=== PATIENT | female | born 1995 | race Caucasian/White ===

== ENCOUNTER → 2020-02-25 | Outpatient (CLI) | payer BC ==
--- NOTE | 2020-02-26 00:52 | EKG REPORT ---
SEVERITY:- NORMAL ECG - SINUS RHYTHM : Confirmed by: Bg Pineda 26-Feb-2020 00:51:46
== END ==
LOC: OD 12:35
PROVIDERS: ATTEND Advanced Practice Midwife
DX: O26.893 Other specified pregnancy related conditions, third trimester (principal); R07.1 Chest pain on breathing; Z3A.32 32 weeks gestation of pregnancy
CPT/HCPCS: 93005; 93010

== ENCOUNTER 2020-04-26 10:42 | Inpatient (IN) | payer BC, OTHER ==
[2020-04-26] MEDS ORDERED: RINGERS SOLUTION,LACTATED 1,000 ML IV ONE (11:15)
[2020-04-26] MEDS ORDERED: RINGERS SOLUTION,LACTATED 1,000 ML IV PRN (11:15)
[2020-04-26 11:25] LABS: APPEARANCE,URINE CLEAR; BILIRUBIN,URINE NEGATIVE (NEGATIVE); COLOR,URINE YELLOW; GLUCOSE, URINE NEGATIVE (NEGATIVE); KETONES,URINE NEGATIVE (NEGATIVE); LEUKOCYTE ESTERASE,URINE NEGATIVE (NEGATIVE); NITRITE,URINE NEGATIVE (NEGATIVE); PROTEIN,URINE NEGATIVE (NEGATIVE); URINE SPECIFIC GRAVITY 1.011; UROBILINOGEN,URINE NEGATIVE mg/dL (<2.0)
[2020-04-26 11:43] LABS: URINE AMPHETAMINES SCREEN NEGATIVE; URINE BARBITURATES SCREEN NEGATIVE; URINE BENZODIAZEPINES SCREEN NEGATIVE; URINE COCAINE SCREEN NEGATIVE; URINE MARIJUANA (THC) SCREEN NEGATIVE; URINE METHADONE SCREEN NEGATIVE; URINE PHENCYCLIDINE SCREEN NEGATIVE
[2020-04-26 12:18] LABS: ABSOLUTE LYMPHOCYTES (AUTO) 1.2 10^3/uL (0.5-4.7); ABSOLUTE MONOCYTES (AUTO) 0.6 10^3/uL (0.1-1.4); ABSOLUTE NEUT (AUTO) 6.8 10^3/uL (1.7-8.2); BASOPHILS % (AUTO) 0.2 % (0-2); EOSINOPHILS % (AUTO) 0.1 % (0-6); HEMATOCRIT 30.5 % (36.0-47.0); HEMOGLOBIN 10.4 g/dL (12.0-15.5); LYMPHOCYTES % (AUTO) 14.1 % (13-45); MEAN CORPUSCULAR HEMOGLOBIN 31.5 pg (27.0-33.4); MEAN CORPUSCULAR VOLUME 93 fl (80-97); MONOCYTES % (AUTO) 6.4 % (3-13); PLATELET COUNT 198 10^3/uL (150-450); RED CELL DISTRIBUTION WIDTH 16.2 % (11.5-14.0); SEGMENTED NEUTROPHILS % (AUTO) 79.2 % (42-78); TOTAL CELLS COUNTED % (AUTO) 100 %; WHITE BLOOD COUNT 8.7 10^3/uL (4.0-10.5)
--- NOTE | 2020-04-26 12:50 | Admission Physical ---
Datetime Report Generated by CPN: 04/26/2020 12:49 CURRENT ADMISSION Chief Complaint: Uterine Contractions; Suspected Ruptured Membranes Chief Complaint Other: G1 at 40.5 weeks EGA with contractions and cervical change noted in triage: Active labor. Membranes intact Admit Impression : Term, Intrauterine ; Active Labor Admit Plan: Admit to Unit; Initiate Labor Protocol ALLERGIES Medication Allergies: No Medication Allergies: No Known Allergies (04/26/2020) Latex: No Latex Allergies Food Allergies: denies Environmental Allergies: denies OBSTETRICAL HISTORY EDC: 04/21/2020 00:00 : 1 Para: 0 Term: 0 : 0 SAB: 0 IAB: 0 Ectopic: 0 Livin Cesareans: 0 VBACs: 0 Multiple Births: 0 Gestational Diabetes: No Rh Sensitization: No Incompetent Cervix: No JOSI: No Infertility: No ART Treatment: No Uterine Anomaly: No IUGR: No Hx Previous C/S: No Macrosomia: No Hx Loss/Stillborn: No PIH: No Hx : No Placenta Previa/Abruption: No Depression/PP Depression: No PTL/PROM: No Post Hemorrhage: No Current Procedures: Ultrasound Obstetrical History Comments: G1- current SEE RECORDS Alcohol: No Marijuana : No Cocaine: No Other Illicit Drugs: No Cigarettes: Never Smoker. [id number] MEDICAL HISTORY Diabetes: No Blood Transfusion: No Pulmonary Disease (Asthma, TB): No Breast Disease: No Hypertension: No [employer]ician Surgery: No Heart Disease: No Hosp/Surgery: No Autoimmune Disorder: No Anesthetic Complications: No Kidney Disease: No Abnormal Pap Smear: No Neuro/Epilepsy: No Psychiatric Disorders: No Other Medical Diseases: No Hepatitis/Liver Disease: No Significant Family History: No Varicosities/Phlebitis: No Trauma/Violence : No Thyroid Dysfunction: No Medical History Comments: eye surgery x2, INFECTIOUS HISTORY Gonorrhea: No Genital Herpes: No Chlamydia: No Tuberculosis: No Syphilis: No Hepatitis: No HIV/AIDS Exposure: No Rash or Viral Illness: Yes HPV: No Infectious History Comments: Covid + march 2020 PHYSICAL EXAM General: Normal HEENT: Normal Neurologic: Normal Thyroid: Normal Heart: Normal Lungs: Normal Breast: Normal Back: Normal Abdomen: Normal Genitourinary Exam: Normal Extremities: Normal DTRs: Normal Pelvic Type: Adequate Vital Signs: Reviewed; Within Normal Limits VAGINAL EXAM Dilatation: 4 Effacement: 80 Station: -2 Contraction Comments: Contractions every 3-5 minutes MEMBRANES Pooling: Negative Membranes: Intact FETUS A EGA: 40.5 Monitoring: External US FHR- Baseline: 125 Variability: Moderate 6-25bpm Accelerations: Prolonged Decelerations: None FHR Category: Category I Presentation: Vertex Admit Comment: G1 at 40.5 weeks in Active labor -Admit to LDR -CEFM and toco -NPO and IVFs: LR at 125 cc/hr after 1 liter bolus -GBS negative - Positive covid test 03/30/2020 but retested on 04/08/20 and negative. NO symptoms today except no sense of smell. Afebrile . FOB with patient and he is asymptomatic and afebrile. -Desires epidural -Anticipate PLANS FOR LABOR AND DELIVERY Labor and Delivery: None Pain Management: Epidural Feeding Preference: Breast Benefit of Breast Feed Discussed: Yes Circumcision: N/A INFORMED CONSENT Informed Consent Obtained: Vaginal Delivery; Vacuum/Forceps Assist; Risks, Benefits and Alternatives Discussed Signature: with User ID: [email or web address] : with User ID: [email or web address]
[2020-04-26] MEDS ORDERED: MISOPROSTOL 0.2 MG TABLET ONE (13:58)
[2020-04-26] MEDS ORDERED: EPHEDRINE SULFATE INJ 50 MG/1 ML AMPULE ONE (13:58)
[2020-04-26] MEDS ORDERED: OXYTOCIN 10 UNIT/ML VIAL ONE (13:58)
[2020-04-26] MEDS ORDERED: OXYTOCIN/0.9 % SODIUM CHLORIDE 30 UNIT/500 ML RTUINJ ONE (13:59)
[2020-04-26] MEDS ORDERED: LIDOCAINE 1% INJ-PF (10 MG/ML) 30 ML SDV ONE (13:59)
[2020-04-26] MEDS ORDERED: ROPIVACAINE HCL 0.2% INJ/PF (2 MG/ML) 20 ML SDV ONE (13:59)
[2020-04-26] MEDS ORDERED: FENTANYL/BUPIVACAINE/NS/PF 300 MCG/150 ML RTUINJ EPI ONE (13:59)
[2020-04-26] MEDS ORDERED: OXYTOCIN/0.9 % SODIUM CHLORIDE 30 UNIT/500 ML RTUINJ IV PRN (15:03)
[2020-04-26] MEDS ORDERED: ROPIVACAINE HCL 0.5% INJ/PF (5 MG/1 ML) 30 ML SDV ONE (18:00)
[2020-04-26] MEDS ORDERED: MAG HYDROX/AL HYDROX/SIMETH SUSP 30 ML UDCUP ONE (18:50)
[2020-04-27] MEDS ORDERED: ACETAMINOPHEN 325 MG TABLET PO PRN (01:12)
[2020-04-27] MEDS ORDERED: MEASLES,MUMPS&RUBELLA VACC/PF 0.5 ML VIAL SUBCUT PRN (01:12)
[2020-04-27] MEDS ORDERED: DIBUCAINE 1% OINTMENT 28 GM TP PRN (01:12)
[2020-04-27] MEDS ORDERED: OXYTOCIN/0.9 % SODIUM CHLORIDE 30 UNIT/500 ML RTUINJ IV PRN (01:12)
[2020-04-27] MEDS ORDERED: NA PHOS,M-B/NA PHOS,DI-BA (ADULT) 133 ML ENEMA PR PRN (01:12)
[2020-04-27] MEDS ORDERED: PROMETHAZINE HCL 25 MG TABLET PO PRN (01:12)
[2020-04-27] MEDS ORDERED: ACETAMINOPHEN 650 MG SUPP.RECT PR PRN (01:12)
[2020-04-27] MEDS ORDERED: GLYCERIN/WITCH HAZEL LEAF 1 EACH MED..WIPE TP PRN (01:12)
[2020-04-27] MEDS ORDERED: ZOLPIDEM TARTRATE 5 MG TABLET PO PRN (01:12)
[2020-04-27] MEDS ORDERED: DIPHENHYDRAMINE HCL 25 MG CAPSULE PO PRN (01:12)
[2020-04-27] MEDS ORDERED: BENZOCAINE/MENTHOL AEROSOL SPRAY 56 ML TOP PRN (01:12)
[2020-04-27] MEDS ORDERED: PSEUDOEPHEDRINE HCL 30 MG TABLET PO PRN (01:12)
[2020-04-27] MEDS ORDERED: PROMETHAZINE HCL INJ 25 MG/1 ML VIAL IV PRN (01:12)
[2020-04-27] MEDS ORDERED: PROMETHAZINE HCL 25 MG SUPP.RECT PR PRN (01:12)
[2020-04-27] MEDS ORDERED: ACETAMINOPHEN WITH CODEINE #3 TABLET PO PRN ×2 (01:12)
[2020-04-27] MEDS ORDERED: MAGNESIUM HYDROXIDE SUSP 30 ML UDCUP PO PRN (01:12)
[2020-04-27] MEDS ORDERED: DIPH/PERTUSS(ACELL)/TETANUS VAC/PF 0.5 ML SYR (>=10YO) IM PRN (01:12)
[2020-04-27] MEDS ORDERED: IBUPROFEN 800 MG TABLET ONE ×2 (01:18→06:23)
--- NOTE | 2020-04-27 02:09 | Birth Certificate Data ---
Cert Data Datetime Report Generated by CPN: 04/27/2020 02:09 CERTIFICATE DATA Delivery Provider: Denisha Arrieta MD (04/26/2020 10:44:KAYLEEN Zepeda) 47a. Care: Yes (04/26/2020 10:44:Tonia Banegas RN) 47b. Date of First Visit: 09/18/2019 00:00 (04/26/2020 10:44:Tonia Banegas RN) 47c. Date of Last Visit: 04/24/2020 00:00 (04/26/2020 10:44:Tonia Banegas RN) 47d. Number of Visits: 10 (04/26/2020 10:44:Tonia Banegas RN) 48a. Number of Prev Live Births: 0 (04/26/2020 10:44:Tonia Banegas RN) 48b. Now Livin (04/26/2020 10:44:Tonia Banegas RN) 48c. Live Births Now : 0 (04/26/2020 10:44:QS system process) 48e. Losses: 0 (04/26/2020 10:44:Tonia Banegas RN) RISK FACTORS IN THIS 49a. Diabetes: No (04/26/2020 10:44:Malia Lance RN) 49b. Hypertension: No (04/26/2020 10:44:Malia Lance RN) 49c. Previous Births: 0 (04/26/2020 10:44:Tonia Banegas RN) 49d. Stillborns: No (04/26/2020 10:44:Malia Lance RN) 49d. IUGR: No (04/26/2020 10:44:Malia Lance RN) 49e. Infertility Treatment: No (04/26/2020 10:44:Malia Lance RN) 49f. Previous Cesareans: 0 (04/26/2020 10:44:Tonia Banegas RN) Mother's Height 50b. Height Inches: 68 (04/27/2020 00:32:QS system process) Mother's Weight 51a. Pre- Weight (lbs): 177 (04/26/2020 10:44:Tonia Banegas RN) 51b. Weight at Delivery (lbs): 202 (04/27/2020 00:32:QS system process) 52. Dt Last Normal Menses Began: 07/16/2019 00:00 (04/26/2020 10:44:Tonia Banegas RN) Infections Present/Treated 53a. Gonorrhea: No (04/26/2020 10:44:Malia Lance RN) Results this Hospital Visit : Negative (04/26/2020 10:44:Tonia Banegas RN) 53b. Syphilis: No (04/26/2020 10:44:Malia Lance RN) 53c. Chlamydia: No (04/26/2020 10:44:Malia Lance RN) Results this Hospital Visit: Negative (04/26/2020 10:44:Tonia Banegas RN) 53d. Hepatitis B: No (04/26/2020 10:44:Malia Lance RN) Results this Hospital Visit: Negative (04/26/2020 10:44:Tonia Banegas RN) 53e. Hepatitis C: Negative (04/26/2020 10:44:Tonia Banegas RN) 53h. Mother Tested for HBsAG: Yes (04/26/2020 10:44:Tonia Banegas RN) 53i. Date Tested: 09/18/2019 00:00 (04/26/2020 10:44:Tonia Banegas RN) 53j. Test Result: Negative (04/26/2020 10:44:Tonia Banegas RN) Obstetric Procedures 54a, b, c. Obstetric Procedures: Ultrasound (04/26/2020 10:44:Malia Lance RN) Cigarette Smoking Cigarette Smoking: Never Smoker. [id number] (04/26/2020 10:44:Malia Lance RN) Onset of Labor 56a. PROM >12 Hrs: 6.95 (04/26/2020 10:44:QS system process) 56b. Precipitous Labor <3 Hrs: 15 (04/26/2020 10:44:QS system process) 56c. Prolonged Labor > 20 Hrs: 15 (04/26/2020 10:44:QS system process) 57a. Induction of Labor: Induction (04/26/2020 10:44:KAYLEEN Zepeda) 57c. Non-Vertex Presentation A: Vertex (04/26/2020 10:44:KAYLEEN Zepeda) 57d. Steroids - Lung Mat: None (04/26/2020 10:44:Malia Lance RN) 57d. Steroids - Lung Mat: Not Applicable (04/26/2020 10:44:Malia Lance RN) 57f. Mat [place] or Temp >100.4: 99.2 (04/26/2020 10:44:KAYLEEN Zepeda) 57g. Moderate/Heavy Meconium: Clear (04/26/2020 17:30:Malia Lance RN) 57h. Intolerance of Labor: N/A (04/26/2020 10:44:Mica Nunonatalie, RNC) 57i. Epidural/Spinal Anesthesia: Epidural (04/26/2020 10:44:Stephanie Galan RN) Method of Delivery 58a. Forceps - Unsuccessful A: N/A (04/26/2020 10:44:Mica Nunonce, RNC) 58b. Vacuum - Unsuccessful A: N/A (04/26/2020 10:44:Mica Ellashreyance, RNC) 58c. Presentation at 58c. Presentation at - A : Vertex (04/26/2020 10:44:Mica Yaakovnce, RNC) 58c. Presentation at - A : N/A (04/26/2020 10:44:Mica Bellavance, RNC) 58c. Presentation at - A : Cephalic (04/26/2020 10:44:Mica Ellaavance, RNC) Final Route and Method of Del 58d. Baby A Route/Delivery: Vaginal (04/27/2020 00:27:Mica Nunonce, RN) 58e. Trial of Labor Attempted: No (04/26/2020 10:44:Malia Lance RN) 58e. Trial of Labor Attempted A: N/A (04/26/2020 10:44:Malia Lance RN) 58e. Trial of Labor Attempted B: N/A (04/26/2020 10:44:Malia Lance RN) Maternal Morbidity 59b. 3rd or 4th Degree Lacs: Sulcus (04/26/2020 10:44:Mica Bellavance, [facility]) Birthweight Baby A: 3568 (04/26/2020 10:44:Stephanie Galan RN) 60a. Pounds : 7 (04/26/2020 10:44:QS system process) 60b. Ounces: 14 (04/26/2020 10:44:QS system process) 61. GA at Delivery Baby A: 40.6 (04/26/2020 10:44:KAYELEN Zepeda) : Full Term- 39- 40.6 Weeks (04/26/2020 10:44:QS system process) 62a. 5 Minute Baby A: 8 (04/26/2020 10:44:QS system process)
--- NOTE | 2020-04-27 02:09 | Delivery Summary ---
Del Sum A-C Datetime Report Generated by CPN: 04/27/2020 02:09 DELIVERY PERSONNEL DELIVERY PERSONNEL: [id number] Delivery Doctor:: Denisha Arrieta MD Labor and Delivery Nurse:: Stephanie Galan RNprosecuting attorney Nurse:: Mica Bergman RNC Nursery Nurse:: Holli Bhatti RN Nursery Nurse:: Danya Carrasco RN [employer]/[facility] ADMINISTRATOR: Anusha Ross, ST MATERNAL INFORMATION Delivery Anesthesia: Epidural Medications After Delivery: Pitocin 30 Units in 500ml NS/D5W Maternal Complications: None Provider Comments: Called to patients room as she was complete and +3. Pushed through a few contractions and delivered a viable female infant. As the head delivered, a dark large clot delivered: possible partial abruption. After delivery of the head, the shoulders and rest of the body delivered easily. FUndus firm and 1 below the umbilicus. Repair as above. Placenta spontaeously delivered intact. WIll send to pathology. INfant nasal and oral suctioned iwth assistance of nursery staff. Infant and Mother both stable. LABOR SUMMARY EDC: 04/21/2020 00:00 No. Babies in Womb: 1 Attempted: No Labor Anesthesia: Epidural LABOR INFORMATION Reason for Induction: Not Applicable Onset of Labor: 04/26/2020 09:00 Complete Dilatation: 04/26/2020 18:43 Oxytocin: Induction Group B Beta Strep: negative Steroids Given: None Reason Steroids Not Administered: Not Applicable MEMBRANES Membranes Rupture Method: Artificial Rupture of Membranes: 04/26/2020 17:30 Length of Rupture (hr): 6.95 Amniotic Fluid Color: Clear Amniotic Fluid Amount: Small Amniotic Fluid Odor: None STAGES OF LABOR Stage 1 hr: 9 Stage 1 min: 43 Stage 2 hr: 5 Stage 2 min: 44 Stage 3 hr: 0 Stage 3 min: 3 Total Time in Labor hr: 15 Total Time in Labor min: 30 VAGINAL DELIVERY Episiotomy: None Laceration #1: Sulcus Laceration Extension #1: Second Degree Laceration Repair: Yes Laceration Repair Note: Bilteral sulcus lacerations second degree and a second degree perineum that did not extend externally past the introitus. THese were repaired in a layered fashion with two 2-0 chormic in a layered fashion. Hemostasis obtained and good reapproximation of the perineum. Sponge Count Correct: Yes Sharps Count Correct: Yes CSECTION DELIVERY Primary Indication: N/A BABY A INFORMATION Infant Delivery Date/Time: 04/27/2020 00:27 Method of Delivery: Vaginal Nurse Controlled Delivery: No Born in Route : No : N/A Forceps: N/A Vacuum Extraction: N/A Shoulder Dystocia : No PRESENTATION/POSITION BABY A Presentation: Cephalic Cephalic Presentation: Vertex Vertex Position: Left Occipital Anterior Breech Presentation: N/A PLACENTA INFORMATION BABY A Placenta Delivery Time : 04/27/2020 00:30 Placenta Method of Delivery: Spontaneous Placenta Status: Delivered SCORES BABY A Heart Rate 1 min: >100 bpm Resp Effort 1 min: Slow, Irregular Reflex Irritability 1 min: Cough or Sneeze or Pulls Away Muscle Tone 1 min: Active Motion Color 1 min: Blue/Pale Resuscitation Effort 1 min: Tactile Stimulation SCORE 1 MIN: 7 Heart Rate 5 min: >100 bpm Resp Effort 5 min: Slow, Irregular Reflex Irritability 5 min: Cough or Sneeze or Pulls Away Muscle Tone 5 min: Active Motion Color 5 min: Body [place], Extremities Blue SCORE 5 MIN: 8 INFANT INFORMATION BABY A Gestational Age at Delivery: 40.6 Gestational Status: Full Term- 39- 40.6 Weeks Outcome : Liveborn Infant Condition : Stable Infant Sex: Female IDENTIFICATION BABY A Verification Date/Time: 04/27/2020 01:52 ID Band Number: [id number] Mother's Name Verified: Yes RN Verifying Infant: Dwayne, RN and S.Adama, RN WEIGHT/LENGTH BABY A Birthweight (gm): 3568 Infant Weight (lb): 7 Infant Weight (oz): 14 Infant Length (in): 21.00 Length (cm): 53.34 CORD INFORMATION BABY A No. Cord Vessels: 3 Nuchal Cord : N/A Cord Blood Taken: Yes-For Storage (Mom's Blood type +) Infant Suction: Mouth; Nose; Pharynx ASSESSMENT BABY A Infant Complications: None Physical Findings at Delivery: Within Normal Limits Respirations: Appears Normal Skin to Skin: Yes Transferred To: Remains with Mother BABY B INFORMATION : N/A SIGNATURES Signature: with User ID: [email or web address] : with User ID: [email or web address]
[2020-04-27] MEDS ORDERED: AMMONIA INHALANTS 10 AMPUL/BOX IH ONE (02:50)
[2020-04-27] MEDS ORDERED: RINGERS SOLUTION,LACTATED 1,000 ML IV PRN (03:07)
[2020-04-27] MEDS ORDERED: MAG HYDROX/AL HYDROX/SIMETH SUSP 30 ML UDCUP ONE (05:19)
[2020-04-27 06:29] LABS: HEMATOCRIT 26.1 % (36.0-47.0); HEMOGLOBIN 8.8 g/dL (12.0-15.5); MEAN CORPUSCULAR HEMOGLOBIN 30.8 pg (27.0-33.4); MEAN CORPUSCULAR HGB CONC 33.6 g/dL (32.0-36.0); MEAN CORPUSCULAR VOLUME 92 fl (80-97); PLATELET COUNT 205 10^3/uL (150-450); RED BLOOD COUNT 2.84 10^6/uL (3.72-5.28); RED CELL DISTRIBUTION WIDTH 16.7 % (11.5-14.0); WHITE BLOOD COUNT 16.3 10^3/uL (4.0-10.5)
[2020-04-27] MEDS: IBUPROFEN 800 MG TABLET PO SCH ×4 (06:35→21:23)
[2020-04-27 07:57] LABS: ABSOLUTE LYMPHOCYTES# (MANUAL) 1.1 10^3/uL (0.5-4.7); ANISOCYTOSIS 1+; BASOPHILS % (MANUAL) 0 % (0-2); EOSINOPHILS % (MANUAL) 0 % (0-6); LYMPHOCYTES % (MANUAL) 7 % (13-45); MONOCYTES % (MANUAL) 0 % (3-13); SEGMENTED NEUTROPHILS % (MAN) 93 % (42-78); TOTAL CELLS COUNTED 100
[2020-04-27 07:58] LABS: PLATELET COMMENT ADEQUATE; POLYCHROMASIA SLIGHT
[2020-04-27] MEDS: FERROUS SULFATE 325 MG TABLET PO SCH ×2 (09:06→17:33)
[2020-04-27] MEDS: PRENATAL VITAMIN W DHA CAPSULE PO SCH (09:06)
[2020-04-27] MEDS: FAMOTIDINE 20 MG TABLET PO SCH ×2 (09:06→21:23)
[2020-04-27] MEDS: SENNOSIDES/DOCUSATE 8.6-50 MG 1 EACH TABLET PO SCH (09:06)
[2020-04-27] MEDS: DOCUSATE SODIUM 100 MG CAPSULE PO SCH ×2 (09:06→17:33)
[2020-04-28] MEDS: IBUPROFEN 800 MG TABLET PO SCH ×2 (05:28→13:13)
[2020-04-28 07:57] VITALS: BP 113/59
[2020-04-28 08:42] LABS: HEMATOCRIT 22.1 % (36.0-47.0); MEAN CORPUSCULAR HEMOGLOBIN 31.5 pg (27.0-33.4); MEAN CORPUSCULAR HGB CONC 34.3 g/dL (32.0-36.0); MEAN CORPUSCULAR VOLUME 92 fl (80-97); PLATELET COUNT 183 10^3/uL (150-450); WHITE BLOOD COUNT 9.5 10^3/uL (4.0-10.5)
[2020-04-28 08:44] LABS: HEMOGLOBIN 7.6 g/dL (12.0-15.5)
[2020-04-28] MEDS: FAMOTIDINE 20 MG TABLET PO SCH (09:36)
[2020-04-28] MEDS: FERROUS SULFATE 325 MG TABLET PO SCH ×2 (09:36→17:11)
[2020-04-28] MEDS: SENNOSIDES/DOCUSATE 8.6-50 MG 1 EACH TABLET PO SCH (09:36)
[2020-04-28] MEDS: DOCUSATE SODIUM 100 MG CAPSULE PO SCH ×2 (09:36→17:11)
[2020-04-28] MEDS: PRENATAL VITAMIN W DHA CAPSULE PO SCH (09:37)
--- NOTE | 2020-04-28 10:54 | PDOC PROGRESS REPORT ---
Subjective-OB Progress Note for:: 04/28/20 Subjective: reports bleeding slowing, pain controlled with current meds. denies needs Physical Exam (OB) Vital Signs: Temp Pulse Resp BP Pulse Ox 97.7 F 78 16 113/59 L 100 04/28/20 07:42 04/28/20 07:42 04/28/20 07:42 04/28/20 07:42 04/28/20 07:42 Intake & Output 04/27/20 04/28/20 04/29/20 06:59 06:59 06:59 Intake Total 900 2980 320 Balance 900 2980 320 Weight 92.1 kg - Maternal Morbidity 59. Maternal Morbidity (serious complications experinced by the mother associated with labor and delivery: None of the above - Abdomen Description: Soft Hernia Present: No Fundal Description: Firm, Midline Fundal Height: u/u - u/2 - Abdominal Distension: No distension Tenderness: Nontender - Extremities Lower extremities: Kathryn's sign - neg Calf: Normal, Nontender Objective-Diagnostic Laboratory: 04/28/20 07:49 04/28/20 07:49 WBC 9.5 RBC 2.40 L Hgb 7.6 L Hct 22.1 L MCV 92 MCH 31.5 MCHC 34.3 RDW 17.0 H Plt Count 183 Assessment and Plan(PN) - Time Spent with Patient Time with patient: Less than 15 minutes Medications reviewed and adjusted accordingly: Yes - Disposition Anticipated Discharge Disposition: Home, Self Care Anticipated Discharge Timeframe: within 24 hours
--- NOTE | 2020-04-28 17:18 | PDOC DISCHARGE SUMMARY ---
Impression - Admit/DC Date/PCP Admission Date/Primary Care Provider: 04/26/20 11:20 GARFIELD FARRELL MD Discharge Date: 04/28/20 - Additional Information Resuscitation Status: Full Code Discharge Diet: As Tolerated Discharge Activity: Activity As Tolerated, Balance Activity w/Rest, Pelvic Rest, Slowly Increase Activity, Walk Frequently Referrals: GARFIELD FARRELL MD [Primary Care Provider] - Home Medications: Acetaminophen [Tylenol 325 mg Tablet] 1,000 mg PO PRN PRN 04/26/20 History of Present Illiness History of Present Illness: AFIA HERRON is a 24 year old female Physical Exam - Physical Exam Vital Signs: Temp Pulse Resp BP Pulse Ox 97.7 F 78 16 113/59 L 100 04/28/20 07:42 04/28/20 07:42 04/28/20 07:42 04/28/20 07:42 04/28/20 07:42 Intake & Output 04/27/20 04/28/20 04/29/20 06:59 06:59 06:59 Intake Total 900 2980 1100 Balance 900 2980 1100 Weight 92.1 kg General appearance: PRESENT: no acute distress Respiratory exam: PRESENT: clear to auscultation olga Cardiovascular exam: PRESENT: RRR Results Laboratory Results: WBC 9.5 10^3/uL (4.0-10.5) 04/28/20 07:49 RBC 2.40 10^6/uL (3.72-5.28) L 04/28/20 07:49 Hgb 7.6 g/dL (12.0-15.5) L 04/28/20 07:49 Hct 22.1 % (36.0-47.0) L 04/28/20 07:49 MCV 92 fl (80-97) 04/28/20 07:49 MCH 31.5 pg (27.0-33.4) 04/28/20 07:49 MCHC 34.3 g/dL (32.0-36.0) 04/28/20 07:49 RDW 17.0 % (11.5-14.0) H 04/28/20 07:49 Plt Count 183 10^3/uL (150-450) 04/28/20 07:49 Lymph % (Auto) Not Reportable 04/27/20 04:30 [place] % (Auto) Not Reportable 04/27/20 04:30 Eos % (Auto) Not Reportable 04/27/20 04:30 Baso % (Auto) Not Reportable 04/27/20 04:30 Absolute Neuts (auto) Not Reportable 04/27/20 04:30 Absolute Lymphs (auto) Not Reportable 04/27/20 04:30 Absolute Monos (auto) Not Reportable 04/27/20 04:30 Absolute Eos (auto) Not Reportable 04/27/20 04:30 Absolute Basos (auto) Not Reportable 04/27/20 04:30 Total Counted 100 04/27/20 04:30 Seg Neutrophils % Not Reportable 04/27/20 04:30 Seg Neuts % (Manual) 93 % (42-78) H 04/27/20 04:30 Lymphocytes % (Manual) 7 % (13-45) L 04/27/20 04:30 Monocytes % (Manual) 0 % (3-13) L 04/27/20 04:30 Eosinophils % (Manual) 0 % (0-6) 04/27/20 04:30 Basophils % (Manual) 0 % (0-2) 04/27/20 04:30 Abs Neuts (Manual) 15.2 10^3/uL (1.7-8.2) H 04/27/20 04:30 Abs Lymphs (Manual) 1.1 10^3/uL (0.5-4.7) 04/27/20 04:30 Abs Monocytes (Manual) 0.0 10^3/uL (0.1-1.4) L 04/27/20 04:30 Absolute Eos (Manual) 0.0 10^3/uL (0.0-0.6) 04/27/20 04:30 Abs Basophils (Manual) 0.0 10^3/uL (0.0-0.2) 04/27/20 04:30 Platelet Comment ADEQUATE 04/27/20 04:30 Polychromasia SLIGHT 04/27/20 04:30 Anisocytosis 1+ 04/27/20 04:30 Urine Color YELLOW 04/26/20 10:50 Urine Appearance CLEAR 04/26/20 10:50 Urine pH 6.0 (5.0-9.0) 04/26/20 10:50 Ur Specific [place] 1.011 04/26/20 10:50 Urine Protein NEGATIVE mg/dL (NEGATIVE) 04/26/20 10:50 Urine Glucose (UA) NEGATIVE mg/dL (NEGATIVE) 04/26/20 10:50 Urine Ketones NEGATIVE mg/dL (NEGATIVE) 04/26/20 10:50 Urine Blood NEGATIVE (NEGATIVE) 04/26/20 10:50 Urine Nitrite NEGATIVE (NEGATIVE) 04/26/20 10:50 Urine Bilirubin NEGATIVE (NEGATIVE) 04/26/20 10:50 Urine Urobilinogen NEGATIVE mg/dL (<2.0) 04/26/20 10:50 Ur Leukocyte Esterase NEGATIVE (NEGATIVE) 04/26/20 10:50 Urine Ascorbic Acid NEGATIVE (NEGATIVE) 04/26/20 10:50 Urine Opiates Screen NEGATIVE 04/26/20 10:50 Urine Methadone Screen NEGATIVE 04/26/20 10:50 Ur Barbiturates Screen NEGATIVE 04/26/20 10:50 Ur Phencyclidine Scrn NEGATIVE 04/26/20 10:50 Ur Amphetamines Screen NEGATIVE 04/26/20 10:50 U Benzodiazepines Scrn NEGATIVE 04/26/20 10:50 Urine Cocaine Screen NEGATIVE 04/26/20 10:50 U Marijuana (THC) Screen NEGATIVE 04/26/20 10:50 RPR NONREACTIVE (NONREACTIVE) 04/26/20 11:58 Blood Type B POSITIVE 04/26/20 11:58 Antibody Screen NEGATIVE 04/26/20 11:58 Plan Plan of Treatment: discharge f/u 4 weeks Stroke Is this a Stroke Patient?: No Acute Heart Failure Is this a Heart Failure Patient?: No
== END 2020-04-28 18:58 | disposition home or self-care (01) | DRG 807 ==
LOC: LC 10:42 → LR 11:20 → 2S 04-27 08:45
PROVIDERS: ADMIT Obstetrics & Gynecology; ATTEND Obstetrics & Gynecology
PROC: 10E0XZZ Delivery of Products of Conception, External Approach (ICD-10-PCS; principal; 2020-04-26)
PROC: 0KQM0ZZ Repair Perineum Muscle, Open Approach (ICD-10-PCS; 2020-04-26)
PROC: 10907ZC Drainage of Amniotic Fluid, Therapeutic from Products of Conception, Via Natural or Artificial Opening (ICD-10-PCS; 2020-04-26)
DX: O70.1 Second degree perineal laceration during delivery (principal); Z37.0 Single live birth; Z3A.40 40 weeks gestation of pregnancy
CPT/HCPCS: 1967; 36415; 80307; 81005; 85025; 85027; 86592; 86850; 86900; 86901; 88307; J2590; J2795; J3010; J3490